=== PATIENT | female | born 1990 | race Caucasian/White ===

== ENCOUNTER 2025-01-03 15:33 | Outpatient (REF) | payer OTHER, SELFPAY ==
[2025-01-07 13:12] LABS: Age Gdln ACOG Testing Note (.); IGP, Aptima HPV, rfx 16/18,45 Note (.)
== END 2025-01-03 15:34 | disposition home or self-care (01) ==
LOC: LAB 15:33
PROVIDERS: Visit Provider Physician Assistant
DX: Z01.419 Encounter for gynecological examination (general) (routine) without abnormal findings (principal)
CPT/HCPCS: 87624; 88175

== ENCOUNTER 2025-02-15 06:00 | Outpatient (REF) | payer OTHER, SELFPAY ==
--- OUTSIDE RECORDS SUMMARY | 2025-02-14 10:00 | XMS_ITS ---
Author Organization [facility] in [place] Address [address] [place] [address] Care Team Providers Care Building And Construction Manager Name Role Phone Woody Palmer Primary Care Provider Allergies No Known Allergies REASON FOR VISIT est care- wellness, Hasn't gone to a physician in years, Passed out in 2021 at [facility]- she thinks was just from knee locking- has not happened since then, Past month has had two episodes of chest pain- felt like wind knocked out of her- bottom of sternum area, Patient does not know parents medical history, she is adopted Medications Medication SIG (Take, Route, Frequency, Duration) Notes Start Date End Date Status Lo Loestrin Fe ActiveProtonix 40 MG1 tablet Orally Once a day; Duration: 30 days02/14/2025 Active Social History Tobacco Use: Social History Observation Description Date Details (start date - stop date) Never Smoker NA - NA Tobacco Control (Standard) Question Answer Notes Tobacco use: Nonsmoker AUDIT-C (Standard) Question Answer Notes Did you have a drink containing alcohol in the p ast year? Yes How often did you have a drink containing alcohol in the past year?Monthly or less (1 point)How many drinks did you have on a typical day when you were drinking in the past year?1 or 2 drinks (0 point)How often did you have six or more drinks on one occasion in the past year?Never (0 point)Points1 InterpretationNegative Problems Problem Type SNOMED Code ICD Code Onset Dates Problem Status W/U Status Risk Notes Problem Well adult (405435997) Well adult (Z00.00 ) ActiveconfirmedProblemChest pain (33215766)Chest pain (R07.9)Activeconfirmed Vital Signs Weight 123.6 lbs 02/14/2025 Height 61 in 02/14/2025 Blood pressure systolic 114 mm Hg 02/15/20 25 Blood pressure diastolic 82 mm Hg 025 BMI 23.35 kg/m2 02/14/2025 Encounters Encounter Location Date Provider Diagnosis [facility] [address] [place] [address] 02/14/2025 Woody Palmer Well adult Z00.00 an d Chest pain R07.9 Assessments Encounter Date Diagnosis (ICD Code) Assessment Notes Treatment Notes Treatment Clinical Notes Section Notes 02/14/2025 Well adult (ICD-10 - Z00.00) 5Chest pain (ICD-10 - R07.9) Plan Of Treatment Medication Medication Name Sig Start Date Stop Date Notes Protonix 40 MG 1 tablet Orally Once a day; Duration: 3 0 days 02/14/2025 Pending Test Test Name Order Date HEMOGLOBIN A1C (GLYCO) 02/14/2025 LIPID PANEL (CHOL/TRIG/HDL/LDL) 02/15/20 25 STOOL OCCULT BLOOD 02/14/2025 THYROID PANEL (T4/TSH/FREE T3) 5 CMP (COMP MET ZAVALA) w/eGFR CKD-EPI 2024 CBC WITH DIFF 02/14/2025 Progress Notes * Leslee BYERS EDOB: 2 (35 yo F)Acc No.[id number]:02/14/2025 UNLOCKED PROGRESS NOTE New Patient Patient: Leslee RAMSEY :?Rocky Palmer ([facility]), MDDOB:1990???Age: 35 Y???Sex:FemaleDate:02/14/2025Phone:[phone]:[address], [place]Check In:02:31 PM ESTCheck Out:02:33 PM EST Subjective: * Chief Complaints: * 1 . Est care- wellness. 2. Hasn't gone to a physician in years. 3. Passed out in 2021 at [facility]- she thinks was just from knee locking- has not happened since then. 4. Past month has had two episodes of chest pain- felt like wind knocked out of her- bottom of sternum area. 5. Patient does not know parents medical history, she is adopted. * HPI: ???Depression Screening:?PHQ-2 (2015 Edition)?Little interest or pleasure in doing things? Not at all ?Feeling down, depressed, or hopeless??Not at all ?Total Score?0 ? CHest pain in middle of night? - lower portion of sternum- No LUCIANO -? better if sitting up can last up to couple hours rarely during the day and very short then - more at rest Unsure Hx -? as far as she knows for CAD - thinks mom passed form pancreatic cancer. * ROS: ???EENT:?hearing changes?denies.?visual changes?denies. non-healing mouth sores?denies.?swollen glands or neck lumps?denies.?hoarseness?denies.?sore throat?denies.?difficulty swallowing?denies.?nose bleeds?denies.?nasal congestion?denies.?ear ache?denies.?ear discharge denies.?ringing in ears?denies.?light sensitivity?denies.?eye pain?denies.?blurring?denies.?eye irritation?denies.?double vision?denies. vision loss?denies.?General/Constitutional:?Sweats:?Denies.?Fatigue?denies.?Sleep proble ms?denies.?Anorexia?denies.?Malaise?denies.?Weight loss?denies. Fatigue or Weakness?denies.?Fever or Chills?denies.?Cardiovascular:?Shortness of Breath w/lying flat?denies.?Lightheadedne ss/dizziness?denies.?Chest tightness/ heavy pressure?denies.?Swelling of legs, a nkles, or feet?denies.?Waking up with shortness of breath?denies.?Chest pain&#16 0;denies.?Palpitations?denies.?Weight gain?denies.?Respiratory:?Chronic or frequent cough?denies.?Coughing up blood&#1 60;denies.?Difficulty breathing?denies.?Productive cough?denies.?Snoring&#1 60;denies.?Shortness of breath that awakens from sleep (PND)?denies.?Chest pain? denies.?Sputum production?denies.?Wheezing?denies.?Musculoskeletal:?Joint pain?denies.?Joint Fluid?denies.?Backpain?denies.?Knee pain?denies.?Neck pain?denies.?Joint Stiffness?denies.?Muscle cramps?denies.?Weakness of muscles?denies.?Arthritis?denies.?Muscle aches?denies.?Pain in shoulder(s)?denies.?Swollen joints?denies.? * Medical History: M edical History Verified. * Surgical History: D enies Past Surgical History. * Hospitalization/Major Diagno stic Procedure: D enies Past Hospitalization. * Family History: F ather: unknown. M other: unknown. S ister(s): unknown. 2 sister(s) . . Family history unknown, patient is adopted. * Social History: ???Tobacco Use:?Tobacco Control (Standard)?Tobacco use:?Nonsmoker ???Drug/Alcohol:?AUDIT-C (Standard)?Did you have a drink containing alcohol in the past year??Yes ?How often did you have a drink containing alcohol in the past year?? Monthly or less (1 point) ?How many drinks did you have on a typical daywhen you were drinking in the past year??1 or 2 drinks (0 point) ?How often did you have six or more drinks on one occasion in the past year??Never (0 point) ?Points?1 ?Interpretation?Negative * Medications: J Luis Khan , Medication List reviewed and reconciled with the patient * Allergies: N .K.D.A. Objective: * Vitals: W t:123.6lbs, Ht: 61 in, BP:114/82mm Hg, BMI:23.35Index, Ht-cm: 154.94 cm, Wt-k.06 kg. * Examination: ???Physical Exam: ?GENERAL:?well developed, well nourished, in no acute distress.?HEAD:?normocephalic/atraumatic.?EYES:?pupils equal, round and reactive to light, conjunctivae and sclerae normal.?EARS:?no deformity or lesion of external ear, canals and TM appear normal bilaterally, TM's intact, not inflamed with normal light reflex, hearing grossly normal to conversational speech.?NOSE:?no deformity, discharge, inflammation, or lesions. ?MOUTH:?mucous membranes moist, normal oropharynx and posterior pharynx without lesions or exudates, tongue normal, dentition normal.?NECK:?neck supple, no masses or palpable cervical nodes, trachea midline, thyroid without nodules, masses, tenderness, or enlargement.?CHEST:?no chest wall deformity, no chest wall tenderness. ?LUNGS:?normal respiratory effort and clear to auscultation, no wheezes, rales, or rhonchi, good air exchange.?CARDIO:?regular rate and rhythm, normal S1 and S2, nor murmur, rub, or gallop.?PULSES:?normal capillary refill.?ABDOMEN:?soft, non-distended, non-tender, no masses.?MUSCULOSKELETAL:?no deformity or scoliosis noted, normal range of motion, joints normal, no erythema, edema, effusion, or ecchymosis.?EXTREMITY:?no clubbing, cyanosis, edema, or deformity withnormal ROM in both upper and lower bilateral extremities.?NEUROLOGIC:?grossly normal.?SKIN:?no rashes, ulcerations, or suspicious lesions.?LYMPH NODES:?no cervical adenopathy, nodes normal.?MENTAL STATUS:?alert and oriented x3, normal mood and affect.? Assessment: * Assessment: 1.?Well adult - Z00.00 (Primary)???2.?Chest pain - R07.9??? Plan: * Treatment: Start Protonix Tablet Delayed Release, 40 MG, 1 tablet, Orally, Once a day, 30 days, 30, Refills 11.?LAB: HEMOGLOBIN A1C (GLYCO) ?LAB: LIPID PANEL (CHOL/TRIG/HDL/LDL) ?LAB: STOOL OCCULT BLOOD ?LAB: THYROID PANEL (T4/TSH/FREE T3) ?LAB: CMP (COMP MET ZAVALA) w/eGFR CKD-EPI ?LAB: CBC WITH DIFF * * Electronic signature of Woody Palmer MD, [id number] on 02/16/2025 at 11:44 AM EDT Sign off status: PendingVisit Status:?CHK (Check Out) * Provider: Winnie Palmer ([facility])MD Date: Generated for Printing/Faxing/eTransmitting on:?02/16/2025 11:44 AM EDT History and Physical Notes * HPI (History of Present Illness) CategorySub-CategoryDetailNotesCategory NotesDepression ScreeningPHQ-2 (2015 Edition)Little interest or pleasure in doing things?: Not at all CHest pain in middle of night - lower portion of sternum - No LUCIANO - better if sitting up can last up to couple hours rarely during the day and very short then - more at rest Unsure Hx - as far as she knows for CAD - thinks mom passed form pancreatic cancer Feeling down, depressed, or hopeless?: Not at allTotal Score: 0 Examination CategorySub-CategoryDetailNotesCategory NotesPhysical ExamGENERAL:well developed, well nourished, in no acute distressHEAD:normocephalic/atraumatic EYES:pupils equal, round and reactive to light, conjunctivae and sclerae normal EARS:no deformity or lesion of external ear, canals and TM appear normal bilaterally, TM's intact, not inflamed with normal light reflex, hearing grossly normal to conversational speechNOSE:no deformity, discharge, inflammation, or lesionsMOUTH:mucous membranes moist, normal oropharynx and posterior pharynx without lesions or exudates, tonguenormal, dentition normalNECK:neck supple, no masses or palpable cervical nodes, trachea midline, thyroid without nodules, masses, tenderness, or enlargementCHEST:no chest wall deformity, no chest wall tendernessLUNGS:normal respiratory effort and clear to auscultation, no wheezes, rales, or rhonchi, good air exchangeCARDIO:regular rate and rhythm, normal S1 and S2, nor murmur, rub, or gallopPULSES:normal capillary refillABDOMEN:soft, non-distended, non-tender, no massesRECTAL:MUSCULOSKELETAL:no deformity or scoliosis noted, normal range of motion, joints normal, no erythema, edema, effusion, or ecchymosisEXTREMITY:no clubbing, cyanosis, edema, or deformity with normal ROM in both upper and lower bilateral extremitiesNEUROLOGIC:grossly normalSKIN:no rashes, ulcerations, or suspicious lesionsLYMPH NODES:no cervical adenopathy, nodes normalMENTAL STATUS:alert and oriented x3, normal mood and affect
--- OUTSIDE RECORDS SUMMARY | 2025-02-16 11:45 | XMS_ITS | Clinical Summary ---
Author Organization [facility] Address [id number] [address] [place] [address] Care Team Providers Care Utilization Review Rn Name Role Phone No Pcp, No Pcp Primary Care Provider Unavailabl e Allergies No known active allergies Medications MedicationSigDispense QuantityRefillsLast FilledStart DateEnd DateStatus LO LOESTRIN FE 1 mg-10 mcg (24)/10 mcg (2) tablet Indications:Surveillance of previously prescribed contraceptive pill,Well woman exam with routine gynecological examTake 1 tablet by mouth in the morning. 28 tablet 1204Active Active Problems No known active problems Encounters DateTypeDepartmentCare LwblRchdaxpcile16/08/2025Telephone [facility] [address] [address] Ximena Olsen MA from Last 3 Months Social History Tobacco UseTypesPacks/DayYears UsedDateSmoking Tobacco: NeverSmokeless Tobacco: Never Tobacco Cessation:Counseling Given: Not Answered Alcohol UseStandard Drinks/WeekCommentsNot Currently0 (1 standard drink = 0.6 oz pure alcohol)PHQ-2AnswerDate RecordedTotal Xwgil2714ChildcareAnswerDate EmxiddrtXveujyyncDpaolvl71/22/2020EmploymentAnswerDate RecordedEmploymentUnknown 08/15/2019Purpose - LifeAnswerDate RecordedPurpose and direction in lifeUnknown 1CommentsNoSex and Gender InformationValueDate RecordedSex Assigned at BirthNot on fileLegal WtiQuqbcx85/22/2020 2:12 PM EDTGender Identity Not on fileSexual OrientationNot on file Last Filed Vital Signs Vital SignReadingTime TakenCommentsBlood Gpqjgtjd008/7409 1:09 PM EDT Sqsyy496211/29/2019 8:35 AM EDTTemperature--Respiratory Icrv944311/29/2019 8:35 AM EDTOxygen Saturation--Inhaled Oxygen Concentration--Slomtv99.2 kg (119 lb 6.4 oz)12/29/2023 1:09 PM JZMJasqjk902.9 cm (5' 1 )12/29/2023 1:09 PM EDTBody Mass Index22.56012/29/2023 1:09 PM EDT Plan of Treatment Health MaintenanceDue DateLast DoneCommentsDTaP,Tdap and Td Vaccines (1 - Tdap) 01/20/2011Depression Qupzelcgh88/Influenza Xzaezdo0812/24/2024 Adult BMI Dpwijjjkh68Tobacco Xomckodzb10/ap Smear, 12/16/2022, 11/29/2019 Medical Devices Not on [...] Laboratory Medicine ? [address] ? [place] [address] ? Gynecologic Cytology Consultation ? Patient Name:SOL BYERSERNESTO Vizcaino:1990 (Age: 32)Gender:FTaken:12/16/2022Reported:12/20/2022hysician(s):Katherine ARAUJONLuciano ([phone])Copy To: Rec. #:[id number]: #[id number] Final Cytologic Interpretation ThinPrep Pap Test (Cervical): Satisfactory for evaluation. A transformation zone component is present. NEGATIVE FOR INTRAEPITHELIAL LESION OR MALIGNANCY. jja/12/20/2022 Interpretation performed at [facility], [address] [place] [address], License number: [id number]. Electronically Signed Out By ?VERENICE Saba(ASCP) Date of Last Menstrual Period: ? 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 Thin Prep Pap (FLAT SHEET MAKER) Fee Code(s): ?? G0145 Authorizing ProviderResult TypeResult StatusAshley Stewart BRAND SPECIALIST-CNM PATHOLOGY/CYTOLOGY ORDERABLESFinal ResultPerforming OrganizationAddress City/State/ZIP CodePhone Number COPATH from Last 3 Months or Most Recently Relevant to Health Maintenance Insurance Care Teams Team MemberRelationshipSpecialtyStart DateEnd Date No Pcp, [place] [address] PCP - GeneralFamily Medicine11/29/19
--- OUTSIDE RECORDS SUMMARY | 2025-02-16 11:45 | XMS_ITS | Patient Health Record ---
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 Name Role Phone Woody Palmer Primary Care Provider [phone] Allergies No Known Allergies Results Component Value Reference Range Notes GLYCOHEMOGLOBIN A1C Reviewed date:02/15/2025 03:38:30 PM Interpretation: Performing Lab: Notes/Report: [facility] , Glycohemoglobin A1C 4.5 4.5-6.2 % ADA RECOMMENDED LIMIT 4.0 - 6.0 ADA THERAPEUTIC TARGET < 7.0 ACTION SUGGESTED > 7.0 Estimated Average Glucose 82 Performing Lab:see noteML - [facility] LBPROF 14(COMP METB) Reviewed date:02/15/2025 03:38:30 PM Interpretation: Performing Lab: Notes/Report: [facility] ,Typshq071457-655 mmol/LPotassium3.83.5-5.1 mmol/SJhrzovql65863-691 mmol/LCarbon Xrlynjb69.621.0-32.0 mmol/LAnion Gap16.2Wdgbppv2916-937 mg/dLBlood Urea Nitrogen 6.07.0-18.0 mg/dLCreatinine0.660.55-1.02 mg/dLEstimated GFR ( Leticia>60 >=60 mL/min/1.73m 2Estimated GFR (Non- Maria Elena>60>=60 mL/min/1.73m 2BUN Creatinine Ratio9.8Yhwhgzr8.58.5-10.1 mg/dLBilirubin Total0.50.2-1.0 mg/dL Aspartate Amino Hivpqmilzdu2345-70 U/LAlanine Rfpupqravjxceefi6582-16 U/L Alkaline Cwegqznowht0960-400 U/LTotal Protein7.36.4-8.2 g/dLAlbumin Level3.83.4- 5.0 g/dLGlobulin3.5Albumin Globulin Ratio1.1Performing Lab:see note - [facility] LBT4 Reviewed date:02/15/2025 03:38:30 PM Interpretation: Performing Lab: Notes/Report: [facility] ,T4 Xzyektekb91.104.80-13.90 ug/dLPerforming Lab:see note - [facility] LBTSH Reviewed date:02/15/2025 03:38:30 PM Interpretation: Performing Lab: Notes/Report: [facility] ,Thyroid Stimulating Hormone1.6120.358-3.740 uIU/mLPerforming Lab:see note - [facility] LBLIPID PROFILE Reviewed date:02/15/2025 03:38:30 PM Interpretation: Performing Lab: Notes/Report: [facility] ,Yfncgkubvwiza24<=150 mg/kOHjqrythsshb211<=200 mg/dLHDL Yfpldethxtr7497-13 mg/dL > or =60 mg/dl - LOW CARDIOVASCULAR RISK <40 mg/dl - HIGH CARDIOVASCULAR RISK LDL Cholesterol Orhmyhuimx58.8 <100 mg/dl OPTIMAL 100-129 mg/dl NEAR OR ABOVE OPTIMAL 130-159 mg/dl BORDERLINE HIGH 160-189 mg/dl HIGH >190 mg/dl VERY HIGH VLDL CHOLESTEROL9.2Chol HDL Ratio2.9 3.3 - 4.4 LOW RISK 4.4 - 7.1 AVERAGE RISK 7.1 - 11.0 MODERATE RISK >11.0 HIGH RISK Performing Lab:see note - [facility] LBFREE T3 Reviewed date:02/15/2025 03:38:30 PM Interpretation: Performing Lab: Notes/Report: [facility] ,Free T33.262.18-3.98 pg/mLPerforming Lab:see note - [facility] LB CBC AUTO DIFF Reviewed date:02/15/2025 03:38:30 PM Interpretation: Performing Lab: Notes/Report: [facility] ,White Blood Count7.34.0-11.0 10 3/uLRed Blood Count4.314.20-5.40 10 6/uL Qjxlevmmkz70.612.0-16.0 g/uQPdfxziglqg16.536.0-48.0 %Mean Corpuscular Zzuzqi71.6 81.0-99.0 fLMean Corpuscular Rasqvwjyxm15.626.7-34.0 pgMean Corpuscular HGB Conc 34.429.9-35.2 g/dLRed Cell Distribution Width11.911.0-15.0 %Platelet Pzxaf170 150-450 10 3/uLMean Platelet Ooeoae17.69.5-13.5 fLNeutrophils Percent Auto57.0 43.0-75.0 %Lymphocytes Percent Auto35.320.5-60.0 %Monocytes Percent Auto6.41.7- 12.0 %Eosinophils Percent Auto0.50.9-7.0 %Basophils Percent Auto0.50.2-2.0 % Immature Granulocytes Pct Auto0.30.0-0.5 %Neutrophils Absolute Auto4.21.4-6.5 10 3/uLLymphocytes Absolute Auto2.61.2-3.8 10 3/uLMonocytes Absolute Auto0.50.3-0.8 10 3/uLEosinophils Absolute Auto0.00.0-0.7 10 3/uLBasophils Absolute Auto0.00.0- 0.1 10 3/uLImmature Granulocytes Abs Auto0.020.00-0.03 10 3/uLPerforming Lab:see noteML - [facility] Reason For Referral No Information Medications Medication [...] W/U Status Risk Notes Problem Chest pain (19761335) Chest pain (R07.9) ActiveconfirmedProblemWell adult (048010496)Well adult (Z00.00)Activeconfirmed Vital Signs Blood pressure diastolic 82 mm Hg 02/14/2025 Hlliun11 in02/14/2025lood pressure ycvauddm281 mm Hg02/14/20251705Qieyrj202.6 lbs 02/14/2025BMI23.35 kg/m202/14/2025 Encounters Encounter Location Date Provider Diagnosis [facility] [address] [place] [address] 02/14/2025 Woody Spencer Well adult Z00.00 an d Chest pain R07.9 [facility] [address] [place] [address] 02/15/2025 Woody Palmer Assessments Encounter Date Diagnosis (ICD Code) Assessment [...] Coverage End Date MMO [address] [facility], [place] [id number] Lenore Byers - patient is the insured
--- OUTSIDE RECORDS SUMMARY | 2025-02-16 11:45 | XMS_ITS | Clinical Summary ---
Author Organization [facility] Address [address] [facility] [place] [address] Care Team Providers Care Tricot Knitter Name Role Phone Char Contreras MD Primary Care Provider [phone] Allergies No known active allergies Medications MedicationSigDispense QuantityRefillsLast FilledStart DateEnd DateStatus norethindrone-ethinyl estradiol-iron (Lo Loestrin Fe) 1 MG-10 MCG / 10 MCG tablet Indications:Encounter for surveillance of contraceptive pillsTake 1 tablet by mouth in the morning for 28 days. 28 tablet 1105Active Encounters DateTypeDepartmentCare UqzbWrlvazrehsz63/16/2025Orders Only [facility] [address] [place] [address] Anna Dunn LPN 01/04/2025Telephone [facility] [address] [place] [address] Laura Chandler LPN 01/03/2025 9:30 AM EDTProcedure Visit [facility] [address] [place] [address] Tamika Wilson PA Well woman exam with routine gynecological exam; Encounter for surveillance of contraceptive pills01/03/2025linisync Result Encounter [facility] Unsolicited Tamika Wilson PA 5Bamboo flowsheet [facility] [address] [place] [address] Tamika Wilson PA from Last 3 Months Social History Tobacco UseTypesPacks/DayYears UsedDateSmoking Tobacco: Never Assessed CommentsUnknownSex and Gender InformationValueDate RecordedSex Assigned at Kigucy3012/27/2024 11:17 AM EDTLegal InxTamvnn39/15/2023 11:47 PM EDTGender PqbozjncYgszpr31/04/2025 11:17 AM EDTSexual AmvtpgengjnNoloqslr89/04/2025 11:17 AM EDT Last Filed Vital Signs Vital SignReadingTime TakenCommentsBlood Twowqesy702/80001/03/2025 9:25 AM EDT Pulse--Temperature--Respiratory Rate--Oxygen Saturation--Inhaled Oxygen Concentration--Qqnxwt12.4 kg (124 lb 6.4 oz)01/03/2025 9:25 AM NNKAineyv415.8 cm (5' 2.5 )03/04/2022 12:00 PM ESTBody Mass Index22.39105/04/2021 12:00 PM EST Plan of Treatment DateTypeDepartmentCare Team (Latest Contact Info)Ikifwrfmidl08/17/2026 10:00 AM EDTProcedure Visit [facility] [address] [facility] [place] [id number] Tamika Wilson PA [address] [place] [address] Health MaintenanceDue DateLast DoneCommentsInfluenza Vaccine (#1)12/24/2024 HPV/Uuwaqt28/24/3Cervical Cancer Adnzhneff82/11/2028Pap Smear Procedures Procedure NamePriorityDate/TimeAssociated DiagnosisCommentsIGP,APTIMA HPV,AGE VLWHYiivfni51/11/2025 9:19 AM EDT PAP MBMVSGihjvwl49/11/2025 12:00 AM EDTfrom Last 3 Months Results [...] at: 01 =G ?[facility] ?? [address] [place], [place] ??[address] ?? Shauna Fowler MD, IGP, APTIMA HPV, RFX 16/18,45Note.TBHComment: ?? TESTS ? RESULT ??FLAG ??UNITS ?REF RANGE ??LAB DIAGNOSIS: ?02 ?? NEGATIVE FOR INTRAEPITHELIAL LESION OR MALIGNANCY. Specimen adequacy: ?02 ?? Satisfactory for evaluation. No endocervical component is identified. Performed by: ? 02 ?? Carol Schwartz Associate Professor Of Archaeology (ASCP) . ? 02 Note: ? Note [...] Low,>-Panic High,A-Abnormal,AA-Critical Abnormal Performed at: 02 WB ?[facility] ?? [address] [place], [place] ??[address] ?? Shauna Fowler MD, HPV APTIMANegativeNegativeTBHComment: This nucleic acid amplification test detects fourteen high- risk HPV types (16,18,31,33,35,39,45,51,52,56,58,59,66,68) without differentiation. Performed at: ??=G - [facility] ??[id number] Tank Riveter: Shauna Fowler MD, Phone: ??[phone] Performed at: ??WB - [facility] ??[id number] Tank Riveter: Shauna Fowler MD, Phone: ??[phone] Specimen (Source)Anatomical Location / LateralityCollection Method / Volume Collection TimeReceived Time01/03/2025 9:19 AM EDT01/03/2025 3:40 PM EDT Narrative [facility] - 01/07/2025 1:12 PM EDT BRUSH-SPATULA CERVIX ENDOCERVIX Authorizing ProviderResult TypeResult StatusAmy [facility] BLOOD ORDERABLES Final ResultPerforming OrganizationAddressCity/State/ZIP CodePhone Number [facility] * Pap Smear (01/03/2025 12:00 AM EDT)Specimen (Source)Anatomical Location / LateralityCollection Method / VolumeCollection TimeReceived TimeSwabCervical swab / Unknown Narrative Authorizing ProviderResult TypeResult StatusFazio Nurse [facility] ObLAB CYTOLOGY ORDERABLESFinal ResultPerforming OrganizationAddressCity/State/ZIP CodePhone Number EXTERNAL LAB from Last 3 Months Insurance Care Teams Team MemberRelationshipSpecialtyStart DateEnd Char Contreras MD [address] [place] [address] PCP - GeneralFamily Medicine08/31/22
== END 2025-02-15 23:59 | disposition home or self-care (01) ==
LOC: LAB 06:00
PROVIDERS: PCP Family Medicine; Visit Provider Family Medicine
DX: Z00.00 Encounter for general adult medical examination without abnormal findings (principal)
CPT/HCPCS: G0328

== ENCOUNTER 2025-02-15 11:44 | Outpatient (OUT) | payer OTHER, SELFPAY ==
--- OUTSIDE RECORDS SUMMARY | 2025-02-14 10:00 | XMS_ITS ---
Author Organization [facility] in [place] Address [address] [place] [address] Care Team Providers Care Faculty I On Call Medical Assistant Name Role Phone Woody Palmer Primary Care Provider [phone] Allergies No Known Allergies REASON FOR VISIT est care- wellness, Hasn't gone to a physician in years, [place] [address] [facility]- she thinks was just from knee locking- [...] W/U Status Risk Notes Problem Well adult (879506032) Well adult (Z00.00 ) ActiveconfirmedProblemChest pain (40693054)Chest pain (R07.9)Activeconfirmed Vital Signs Weight 123.6 lbs 02/14/2025 Height 61 in 02/14/2025 Blood pressure systolic 114 mm Hg 02/15/20 25 Blood pressure diastolic 82 mm Hg 025 BMI 23.35 kg/m2 02/14/2025 Encounters Encounter Location Date Provider Diagnosis [facility] [address] [place] [address] 02/14/2025 Woody Palmer Well adult Z00.00 an [...] Leslee BYERS EDOB: 2 (35 yo F)Acc No.[id number]:02/14/2025 UNLOCKED PROGRESS NOTE New Patient Patient: Leslee RAMSEY :?Rocky Palmer ([facility]), MDDOB:1990???Age: 35 Y???Sex:FemaleDate:02/14/2025Phone:[phone]:[address], [place]Check In:02:31 PM ESTCheck Out:02:33 PM EST Subjective: * Chief Complaints: * 1 . Est care- wellness. 2. Hasn't gone to a physician in years. 3. Pass[place] in [address] [facility]- she thinks was just from knee locking- [...] * Electronic signature of Woody Palmer MD, [id number] on 02/15/2025 at 11:49 AM EDT Sign off status: PendingVisit Status:?CHK (Check Out) * Provider: Winnie Palmer ([facility])MD Date: Generated for Printing/Faxing/eTransmitting on:?02/15/2025 11:49 AM EDT History and Physical Notes * [...]
--- OUTSIDE RECORDS SUMMARY | 2025-02-15 11:50 | XMS_ITS | Clinical Summary ---
Author Organization [facility] Address [address] [facility] [place] [address] Care Team Providers Care Trading Floor Operator Name Role Phone Char Contreras MD Primary Care Provider [phone] Allergies No known active allergies Medications MedicationSigDispense QuantityRefillsLast FilledStart DateEnd DateStatus norethindrone-ethinyl estradiol-iron (Lo Loestrin Fe) 1 MG-10 MCG / 10 MCG tablet Indications:Encounter for surveillance of contraceptive pillsTake 1 tablet by mouth in the morning for 28 days. 28 tablet 1105Active Encounters DateTypeDepartmentCare LijnQzyxlyeblpi61/16/2025Orders Only [facility] [address] [address] [place] [address] Anna Dunn LPN 01/04/2025Telephone [facility] [address] [address] [place] [address] Laura Chandler LPN 01/03/2025 9:30 AM EDTProcedure Visit [facility] [address] [place] [address] Tamika Wilson PA Well woman exam with routine gynecological exam; Encounter for surveillance of contraceptive pills01/03/2025linisync Result Encounter [facility] Unsolicited Tamika Wilson PA 5Bamboo flowsheet [facility] [address] [place] [address] Tamika Wilson PA from Last 3 Months Social History Tobacco UseTypesPacks/DayYears UsedDateSmoking Tobacco: Never Assessed CommentsUnknownSex and Gender InformationValueDate RecordedSex Assigned at Vbxvrw6912/27/2024 11:17 AM EDTLegal NzcGiqtku82/15/2023 11:47 PM EDTGender HbofzzlbYcavlm10/04/2025 11:17 AM EDTSexual DdshmnnubuuAomcjknk28/04/2025 11:17 AM EDT Last Filed Vital Signs Vital SignReadingTime TakenCommentsBlood Tdgyheye880/80001/03/2025 9:25 AM EDT Pulse--Temperature--Respiratory Rate--Oxygen Saturation--Inhaled Oxygen Concentration--Esmkak32.4 kg (124 lb 6.4 oz)01/03/2025 9:25 AM DHNOzxqtv888.8 cm (5' 2.5 )03/04/2022 12:00 PM ESTBody Mass Index22.39105/04/2021 12:00 PM EST Plan of Treatment DateTypeDepartmentCare Team (Latest Contact Info)Hggmwjtkfwg36/17/2026 10:00 AM EDTProcedure Visit [facility] [address] [place] [address] Tamika Wilson PA [address] [facility] [place] [address] Health MaintenanceDue DateLast DoneCommentsInfluenza Vaccine (#1)12/24/2024 HPV/Ebkxpi90/24/3Cervical Cancer Qzvwjepew69/11/2028Pap Smear Procedures Procedure NamePriorityDate/TimeAssociated DiagnosisCommentsIGP,APTIMA HPV,AGE NNHAJpugmau13/11/2025 9:19 AM EDT PAP ICCPEAjabgog89/11/2025 12:00 AM EDTfrom Last 3 Months Results * IGP,APTIMA HPV,AGE GDLN (01/03/2025 9:19 AM EDT)ComponentValueRef RangeTest MethodAnalysis TimePerformed AtPathologist SignatureAGE GDLN ACOG TESTINGNote. TBHComment: ?? TESTS ? RESULT ??FLAG ??UNITS ?REF RANGE ??LAB ?? Clinician Provided Cytology Information ?? Source.............Cervix;Endocervix ?? No. of containers..01 ThinPrep Vial Age Algo ACOG Blanca... ??30-65 ? 01 ?FLAG LEGEND: ?L-Low Normal,H-High Normal,LL-Alert Low,HH-Alert High <-Panic Low,>-Panic High,A-Abnormal,AA-Critical Abnormal Performed at: 01 =G ?[facility] ?? [address], [place] ??[address] ?? Shauna Fowler MD, IGP, APTIMA HPV, RFX 16/18,45Note.TBHComment: ?? TESTS ? RESULT ??FLAG ??UNITS ?REF RANGE ??LAB DIAGNOSIS: ?02 ?? NEGATIVE FOR INTRAEPITHELIAL LESION OR MALIGNANCY. Specimen adequacy: ?02 ?? Satisfactory for evaluation. No endocervical component is identified. Performed by: ? 02 ?? Carol Schwartz Coke Wheeler (ASCP) . ? 02 Note: ? Note ?02 ?? The Pap smear is a screening test designed to aid in the ?? detection of premalignant and malignant conditions of the ?? uterine cervix. ??It is not a diagnostic procedure and ?? should not be used as the sole means of detecting cervical ?? cancer. ??Both false-positive and false-negative reports do ?? occur. Test Methodology: ? Note ?02 ?? This liquid based ThinPrep(R) pap test was screened with ?? the use of an image guided system. HPV Genotype Reflex ?? Note ?02 ?? Criteria not met, HPV Genotype not performed. ?FLAG LEGEND: ?L-Low Normal,H-High Normal,LL-Alert Low,HH-Alert High <-Panic Low,>-Panic High,A-Abnormal,AA-Critical Abnormal Performed at: 02 WB ?[facility] ?? [address] [place], [place] ??[address] ?? Shauna Fowler MD, HPV APTIMANegativeNegativeTBHComment: This nucleic acid amplification test detects fourteen high- risk HPV types (16,18,31,33,35,39,45,51,52,56,58,59,66,68) without differentiation. Performed at: ??=G - [facility] ??[id number] [place]: Shauna Fowler MD, Phone: ??[phone] Performed at: ??WB - [facility] ??[id number] [place]: Shauna Fowler MD, Phone: ??[phone] Specimen (Source)Anatomical Location / LateralityCollection Method / Volume Collection TimeReceived Time01/03/2025 9:19 AM EDT01/03/2025 3:40 PM EDT Narrative [facility] - 01/07/2025 1:12 PM EDT BRUSH-SPATULA CERVIX ENDOCERVIX Authorizing ProviderResult TypeResult StatusAmy [facility] BLOOD ORDERABLES Final ResultPerforming OrganizationAddressCity/State/ZIP CodePhone Number CLINIS[facility] * Pap Smear (01/03/2025 12:00 AM EDT)Specimen (Source)Anatomical Location / LateralityCollection Method / VolumeCollection TimeReceived TimeSwabCervical swab / Unknown Narrative Authorizing ProviderResult TypeResult StatusFazio Nurse Noms Bcp ObLAB CYTOLOGY ORDERABLESFinal ResultPerforming OrganizationAddressCity/State/ZIP CodePhone Number EXTERNAL LAB from Last 3 Months Insurance Care Teams Team MemberRelationshipSpecialtyStart DateEnd Char Contreras MD [address] [place] [address] PCP - GeneralFamily Medicine08/31/22
--- OUTSIDE RECORDS SUMMARY | 2025-02-15 11:50 | XMS_ITS | Clinical Summary ---
Author Organization [id number] [address] [place] [address] Care Team Providers Care Skull Grinder Name Role Phone No Pcp, No Pcp Primary Care Provider Unavailabl e Allergies No known active allergies Medications MedicationSigDispense QuantityRefillsLast FilledStart DateEnd DateStatus LO LOESTRIN FE 1 mg-10 mcg (24)/10 mcg (2) tablet Indications:Surveillance of previously prescribed contraceptive pill,Well woman exam with routine gynecological examTake 1 tablet by mouth in the morning. 28 tablet 1204Active Active Problems No known active problems Encounters DateTypeDepartmentCare IabdNrwlgmczdbj03/08/2025Telephone [facility] [address] [place] [address] Ximena Olsen MA from Last 3 Months Social History Tobacco UseTypesPacks/DayYears UsedDateSmoking Tobacco: NeverSmokeless Tobacco: Never Tobacco Cessation:Counseling Given: Not Answered Alcohol UseStandard Drinks/WeekCommentsNot Currently0 (1 standard drink = 0.6 oz pure alcohol)PHQ-2AnswerDate RecordedTotal Nscbq1724ChildcareAnswerDate AemvtxwzVhejhibnrBkwswlv21/22/2020EmploymentAnswerDate RecordedEmploymentUnknown 08/15/2019Purpose - LifeAnswerDate RecordedPurpose and direction in lifeUnknown 1CommentsNoSex and Gender InformationValueDate RecordedSex Assigned at BirthNot on fileLegal CnxIetkbm14/22/2020 2:12 PM EDTGender Identity Not on fileSexual OrientationNot on file Last Filed Vital Signs Vital SignReadingTime TakenCommentsBlood Qgomgmsf303/7409 1:09 PM EDT Bhtuv436111/29/2019 8:35 AM EDTTemperature--Respiratory Lpxp287111/29/2019 8:35 AM EDTOxygen Saturation--Inhaled Oxygen Concentration--Hoozef52.2 kg (119 lb 6.4 oz)12/29/2023 1:09 PM YIKIesnpv181.9 cm (5' 1 )12/29/2023 1:09 PM EDTBody Mass Index22.56012/29/2023 1:09 PM EDT Plan of Treatment Health MaintenanceDue DateLast DoneCommentsDTaP,Tdap and Td Vaccines (1 - Tdap) 01/20/2011Depression Gijufdrva28/Influenza Zjjzjbw0512/24/2024 Adult BMI Dwvssqedj09Tobacco Tdjtvphan57/ap Smear, 12/16/2022, 11/29/2019 Medical Devices Not on file Procedures Procedure NamePriorityDate/TimeAssociated DiagnosisCommentsPAP SMEARRoutine 12/16/2022 6:24 AM EDT Cervical smear, as part of routine gynecological examination from Last 3 Months or Most Recently Relevant to Health Maintenance Results * Pap Smear (12/16/2022 6:24 AM EDT)Specimen (Source)Anatomical Location / LateralityCollection Method / VolumeCollection TimeReceived Time12/16/2022 6:24 AM EDT12/16/2022 6:25 AM EDT Narrative COPATH - 12/20/2022 1:51 PM EDT [facility] ? [address] ? [place] [address] ? Gynecologic Cytology Consultation ? Patient Name:SOL BYERSERNESTO Vizcaino:1990 (Age: 32)Gender:FTaken:12/16/2022Reported:12/20/2022hysician(s):Katherine ARAUJONLuciano ([phone])Copy To: Rec. #:[id number]: #[id number] Final Cytologic Interpretation ThinPrep Pap Test (Cervical): Satisfactory for evaluation. A transformation zone component is present. NEGATIVE FOR INTRAEPITHELIAL LESION OR MALIGNANCY. jja/12/20/2022 Interpretation performed at [facility], [address] [place] [address], License number: [id number]. Electronically Signed Out By ?VERENICE Saba(ASCP) Date of Last Menstrual Period: ? 11/15/22 Other Clinical Conditions: Oral contraceptive Z01.419 Lamp Shade Maker exam wo/abn findings Source of Specimen ??ThinPrep Pap Test (Cervical) ? Thin Prep Pap (DECATOR OPERATOR) Fee Code(s): ?? G0145 Authorizing ProviderResult TypeResult StatusAshley Stewart LANDFILL GRADER-CNM PATHOLOGY/CYTOLOGY ORDERABLESFinal ResultPerforming OrganizationAddress City/State/ZIP CodePhone Number COPATH from Last 3 Months or Most Recently Relevant to Health Maintenance Insurance Care Teams Team MemberRelationshipSpecialtyStart DateEnd Date No Pcp, [place] [address] PCP - GeneralFamily Medicine11/29/19
--- OUTSIDE RECORDS SUMMARY | 2025-02-15 11:50 | XMS_ITS | Patient Health Record ---
Author Organization [facility] in [place] Address [address] [place] [address] Care Team Providers Care Broke Handler Name Role Phone Woody Palmer Primary Care Provider Allergies No Known Allergies Reason For Referral No Information Medications Medication SIG (Take, Route, Frequency, Duration) [...] Problem Status W/U Status Risk Notes Problem Chest pain (27033276) Chest pain (R07.9) ActiveconfirmedProblemWell adult (635624869)Well adult (Z00.00)Activeconfirmed Vital Signs Blood pressure diastolic 82 mm Hg 02/14/2025 Gogrti28 in02/14/2025lood pressure xnvaxage054 mm Hg02/14/20252241Gjajtx090.6 lbs 10/23/1142CDT83.35 kg/m210/ Encounters Encounter Location Date Provider Diagnosis [facility] [address] [place] [address] 02/14/2025 Woody Palmer Well adult Z00.00 an d Chest pain R07.9 Assessments Encounter Date Diagnosis (ICD Code) Assessment Notes Treatment Notes Treatment Clinical Notes Section Notes 02/14/2025 Well adult (ICD-10 - Z00.00) 02/14/2025hest pain (ICD-10 - R07.9) Plan Of Treatment Pending Test Test Name Order Date HEMOGLOBIN A1C (GLYCO) 02/14/2025 LIPID PANEL (CHOL/TRIG/HDL/LDL) 02/15/20 25 STOOL OCCULT BLOOD 02/14/2025 THYROID PANEL (T4/TSH/FREE T3) 5 CMP (COMP MET ZAVALA) w/eGFR CKD-EPI 2024 CBC WITH DIFF 02/14/2025 Insurance Providers Payer Name Payer Address Payer Phone Subscriber Number Group Number Insured Name Patient Relationship to Insured Coverage Start Date Coverage End Date MMO [address] [facility] [place], [place] [id number] Lenore Byers - patient is the insured
[2025-02-15 12:37] LABS: Hematocrit 39.5 % (36.0-48.0); Hemoglobin 13.6 g/dL (12.0-16.0); Immature Granulocytes Abs Auto 0.02 10^3/uL (0.00-0.03); Immature Granulocytes Pct Auto 0.3 % (0.0-0.5); Lymphocytes Absolute Auto 2.6 10^3/uL (1.2-3.8); Mean Corpuscular HGB Conc 34.4 g/dL (29.9-35.2); Mean Corpuscular Hemoglobin 31.6 pg (26.7-34.0); Mean Corpuscular Volume 91.6 fL (81.0-99.0); Platelet Count 359 10^3/uL (150-450); Red Blood Count 4.31 10^6/uL (4.20-5.40); White Blood Count 7.3 10^3/uL (4.0-11.0)
[2025-02-15 13:22] LABS: Alanine Aminotransferase 35 U/L (14-59); Albumin Globulin Ratio 1.1; Albumin Level 3.8 g/dL (3.4-5.0); Alkaline Phosphatase 77 U/L (46-116); Anion Gap 16.2; Aspartate Amino Transferase 20 U/L (15-37); Blood Urea Nitrogen 6.0 mg/dL (7.0-18.0); Calcium 8.5 mg/dL (8.5-10.1); Carbon Dioxide 21.6 mmol/L (21.0-32.0); Chloride 107 mmol/L (98-107); Cholesterol 159 mg/dL (<=200); Estimated GFR (African America >60 (>=60 mL/min/1.73m^2); Estimated GFR (Non-African Ame >60 (>=60 mL/min/1.73m^2); Free T3 3.26 pg/mL (2.18-3.98); Globulin 3.5 g/dL; Glucose 70 mg/dL (74-106); HDL Cholesterol 54 mg/dL (40-60); Potassium 3.8 mmol/L (3.5-5.1); Sodium 141 mmol/L (136-145); Thyroid Stimulating Hormone 1.612 uIU/mL (0.358-3.740); Total Protein 7.3 g/dL (6.4-8.2); Triglycerides 46 mg/dL (<=150); VLDL CHOLESTEROL 9.2 mg/dL
== END 2025-02-15 11:45 | disposition home or self-care (01) ==
LOC: LAB 11:47
PROVIDERS: PCP Family Medicine; Visit Provider Family Medicine
DX: Z00.00 Encounter for general adult medical examination without abnormal findings (principal)
CPT/HCPCS: 36415; 80053; 80061; 83036; 84436; 84443; 84481; 85025; G0328